=== PATIENT | female | born 1960 | race Asian ===

== ENCOUNTER 2020-06-06 15:29 | Emergency (ER) | payer MEDICAID, SELFPAY ==
[2020-06-06 15:31] VITALS: BP 155/76; PULSE 84; RESP 14; TEMP 36.8; O2SAT 98; BMI 25.0
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
[2020-06-06 17:05] VITALS: BP 162/97; PULSE 91; RESP 16; O2SAT 98
[2020-06-06 18:26] VITALS: BP 167/88; PULSE 89; RESP 15; O2SAT 98
[2020-06-06] MEDS: Lidocaine 1% /Epi 1:100 (20ml) 20 ML Vial INFILT (19:07)
[2020-06-06 21:31] VITALS: BP 158/71; PULSE 79; RESP 16; O2SAT 98
[2020-06-06 21:32] VITALS: BP 159/79; PULSE 83; RESP 16; O2SAT 98
== END 2020-06-06 21:54 | disposition short-term general hospital (02) ==
PROVIDERS: Emergency Provider Emergency Medicine
DX: S06.5X9A Traumatic subdural hemorrhage with loss of consciousness of unspecified duration, initial encounter (principal); S01.01XA Laceration without foreign body of scalp, initial encounter; S90.02XA Contusion of left ankle, initial encounter; M25.512 Pain in left shoulder; M62.838 Other muscle spasm; V89.2XXA Person injured in unspecified motor-vehicle accident, traffic, initial encounter; Y93.9 Activity, unspecified; Y92.9 Unspecified place or not applicable; Y99.9 Unspecified external cause status; Z79.82 Long term (current) use of aspirin
CPT/HCPCS: 12002; 70450; 72125; 73030; 99285